=== PATIENT | male | born 1940 | race Caucasian/White ===

== ENCOUNTER 2017-02-07 02:01 | Inpatient (IN) | payer OTHER, MEDICARE ==
[~2017-02-07] VITALS: Ht 172.7 cm; Wt 106.6 kg
[~2017-02-07 02:01] MED LIST: AMLODIPINE BESYL5 M1 PO; ASPIRIN EC81 M1 PO; PREDNISONE5 M1 PO; SYNTHROID50 MCG PO
--- NOTE | 2017-02-07 07:29 | Admission Core Measures ---
Admission Meds I reviewed the following Meds: Current Medications Sig/Niraj Start time Last Medication Dose Stop Time Status Admin Acetaminophen 975 MG ONCE 02/07 0000 NR (Tylenol) 02/07 2359 Cefazolin Sodium 2,000 MG ONCE 02/07 0000 NR (Kefzol-Ancef Inj) 02/07 2359 Oxycodone HCl 10 MG ONCE 02/07 0000 NR (Roxicodone) 02/07 2359 Acute Coronary Syndrome Inclusion Criteria ACS Diagnosis No Inpatient Core Measures LDL Reminder: If No, please order W/I first 24hr of stay Congestive Heart Failure Inclusion Criteria CHF Diagnosis No Cerebrovascular accident Inclusion Criteria CVA/TIA Diagnosis No Inpatient Core Measures Bedside Swallow Eval Reminder: If BSE failed, place ST order Antithrombotic Reminder: Order Antithrombotic Medication by end of day 2 Antithrombotic Reminder: Document Reason Antithrombotic Not ordered by end of day 2 AFIB/Flutter Reminder: If Present, add to problem list AFIB/Flutter Reminder: Order Anticoag Medication for pts with AFIB/Flutter Atherosclerosis Reminder: If Present, add to problem list LDL Reminder: If No, please order W/I first 24hr of stay PT Order Reminder: If No, please order Venous thromboembolism Inpatient Core Measures VTE Risk Factors: [facility] prophylaxis d/t No contraindications No VTE Pharm Prophylaxis d/t No contraindications Inclusion Criteria - Per Current guidelines, there needs to be overlap - treatment for the first 5 days of Warfarin therapy. - Parenteral Anticoagulation (IV or SC) needs to be - given along with Warfarin therapy. VTE Diagnosis No VTE Type NONE VTE Confirmed by (Test) NONE Problem List As ranked by this Provider includes Assessment & Plan 1. Primary osteoarthritis of right knee HOME MEDS Home Med List Amlodipine Besylate 5 MG TABLET 1 TAB PO NIGHTLY HTN (Reported) Aspirin (Ecotrin*) 81 MG TABLET.DR 1 TAB PO DAILY PROPHO (Reported) Levothyroxine Sodium (Synthroid) 50 MCG TABLET 1 TAB PO NIGHTLY HYPOTHYROID ( Reported) Prednisone 5 MG TABLET 1 TAB PO DAILY ARTHRITIS (Reported)
--- NOTE | 2017-02-07 12:01 | Patient Discharge Instructions ---
Discharge Instructions General Discharge Information You were seen/treated for: right knee pain You had these procedures: Total knee replacement, RIGHT Watch for these problems: Increasing pain despite the use of pain medication Increasing redness, warmth or swelling Drainage of any type from incision Inability to bear weight on operative leg Persistent nausea and vomiting Fever greater than 101.5 degrees Other wound care: Please keep wound clean and dry. No ointments or lotions of any type on or near incision at any time. No exceptions. Your dressing will be changed by your nurse on the second day after your surgery. Daily dry dressing changes are recommended each day thereafter. Do not soak your wound in a bath at any time until otherwise indicated by Dr. Aguirre. You may shower, please dry wound immediately after shower with a clean towel. Special Instructions: Aspirin: You are taking this medication to help prevent blood clot formation. Please take with food to protect your stomach lining. Please take as directed. Protonix: Take this daily to protect your stomach lining while taking aspirin. Constipation: Pain medication can cause constipation. Dr. Aguirre has recommended that you take Colace and miralax each day. You may discontinue this medication if you develop loose stool or diarrhea. If you wish to continue this medication, it is available over the counter. If you are unable to move your bowels after several days, if you are unable to pass gas and are developing bloating, nausea, or vomiting as a result, please contact your doctor. Diet Continue normal diet: Yes Activity Activity Limited to: Weight bear as tolerated Other activity limits: use assistive devices as needed Acute Coronary Syndrome Inclusion Criteria At DC or during hospital stay patient has or had the following: ACS DIAGNOSIS No Discharge Core Measures Meds if any: Prescribed or Continued at Discharge Meds if any: NOT Prescribed or Continued at Discharge Congestive Heart Failure Inclusion Criteria At DC or during hospital stay patient has or had the following: CHF DIAGNOSIS No Discharge Core Measures Meds if any: Prescribed or Continued at Discharge Meds if any: NOT Prescribed or Continued at Discharge Cerebrovascular accident Inclusion Criteria At DC or during hospital stay patient has or had the following: CVA/TIA Diagnosis No Discharge Core Measures Meds if any: Prescribed or Continued at Discharge Meds if any: NOT Prescribed or Continued at Discharge Venous thromboembolism Inclusion Criteria VTE Diagnosis No VTE Type NONE VTE Confirmed by (Test) NONE Discharge Core Measures - Per Current guidelines, there needs to be overlap - treatment for the first 5 days of Warfarin therapy. - If discharged on Warfarin prior to 5 days of - overlap therapy, the patient will need to be - assessed for post discharge needs including - *Post discharge parental anticoagulation - *Warfarin and/or parental anticoagulation education - *Follow up date to check INR post discharge At least 5 days overlap therapy as Inpatient No Meds if any: Prescribed or Continued at Discharge Note: Overlap Therapy is Warfarin and Anticoagulant Meds if any: NOT Prescribed or Continued at Discharge
--- NOTE | 2017-02-07 12:04 | Surg Short-stay <48hrs Dis Sum ---
Visit Information Visit Dates Admission Date: 02/07/17 Discharge Date: 02/11/17 Surgical Short Stay DC Summary Admission Diagnosis: Primary unilateral osteoarthritis, RIGHT KNEE Final Diagnosis: same, s/p Total knee replacement, right Procedure(s): Total knee replacement, right Summary/Significant Findings: Patient was admitted to the hospital for an elective total joint replacement. The procedure was tolerated well and patient was transferred to a general surgical floor. Diet was advanced and tolerated, and the patient voided spontaneously. The patient was evaluated and treated by physical therapy. On POD #2, pt experienced a pre-syncopal episode with orthostatic hypotension from the 150s systolic to the 90s. A similar episode occurred on POD #3. Medical consult was requested. Cardiac and endocrine workups were negative. Narcotics were decreased and IVF were resumed briefly. On POD #4, pt was completely asymptomatic, progressed well with PT, and was subsequently cleared for discharge home with PT and nursing care. At the time of hospital discharge, vital signs were stable, neurovascular status was intact, and pain was controlled with the use of oral pain medications. Norvasc dose was changed to 2.5 mg daily. Condition at Discharge: stable Discharge Disposition: home health services Discharge instructions provided to patient/family: Yes Post discharge follow-up plan: Follow up with Dr. Aguirre in 6 weeks from date of surgery. Please call his office to arrange and/or confirm this appointment.
[2017-02-07] MEDS ORDERED: ASPIRIN EC325 M2 PO (12:33)
[2017-02-07] MEDS ORDERED: MIRALAX17 G1 PO (12:34)
[2017-02-07] MEDS ORDERED: MS CONTIN15 M2 PO (12:34)
[2017-02-07] MEDS ORDERED: DILAUDID2 M1 PO (12:34)
[2017-02-07] MEDS ORDERED: COLACE100 M1 PO (12:34)
[2017-02-07] MEDS ORDERED: PROTONIX20 M1 PO (12:34)
--- NOTE | 2017-02-07 17:44 | Operative Report ---
Operative/Inv Procedure Report Surgery Date: 02/07/17 Name of Procedure: Right total knee replacement Pre-Operative Diagnosis: Primary right knee DJD Post-Operative Diagnosis: Same Estimated Blood Loss: 50ml to 100ml Surgeon/Director Of Financial Planning: SRI JUNG,LEW Watts Anesthesia: block Operative/Procedure Note Note: Description of Procedure: The patient was taken to the operating room and positively identified. After induction of spinal anesthesia and administration of appropriate pre-operative antibiotics, the patient was positioned supine on the operating room table and all bony prominences were well padded. A well-padded pneumatic tourniquet was placed on the right upper thigh. After performing a surgical timeout, the right lower extremity was prepped and draped in the usual sterile fashion. After exsanguination with Esmarch the tourniquet was inflated to 250mm of mercury. A standard medial parapatellar approach was made to the knee. This was carried down through skin and subcutaneous tissue to the level of the fascia. Meticulous hemostasis was maintained with Bovie electrocautery. The extensor mechanism and patellar retinaculum were opened sharply and the patella was everted. The infrapatellar fat was resected in order to improve exposure. Osteophytes were trimmed from the patella and femoral condyles and the patella was re-everted and tucked laterally. A medial release was performed and the cruciate ligaments were resected. The tibia was then subluxed anteriorly. Utilizing the appropriate extra-medullary guide, the proximal tibia was trimmed perpendicular to the long axis of the tibial shaft. Attention was then turned to the femur. After opening the medullary canal, the distal femoral cut was made in 6 degrees of valgus utilizing the appropriate intra-medullary guide. The extension gap was checked and found to be appropriate. The femur was then sized and the remainder of the femoral cuts were made with a size 5 4-in-1 femoral cutting guide. The flexion gap was checked and found to be symmetric and appropriate. The knee was then trialed with a size 5 femoral component, a size 6 tibial component and a size 13 mm polyethylene insert. The patella was not resurfaced due to its excellent preoperative condition. This yielded excellent range of motion, stability and patellar tracking. All trial components were removed and the knee was copiously irrigated with sterile saline. All components were cemented into place with [place] Simplex cement. All the components were of the [place] Tri[employer]lon knee system of the above stated sizes. The knee was again irrigated after cementation. The extensor mechanism and patellar retinaculum were repaired using interrupted #1 vicryl suture. The skin was re-approximated with 2-0 vicryl and closed with darron. A sterile dressing was applied, the tourniquet was deflated, the patient was awakened and taken to the recovery room in satisfactory condition.
[2017-02-07 18:15] VITALS: BP 138/70
--- NOTE | 2017-02-07 18:15 | NUR ---
PT ARRIVED TO FLOOR FROM PACU. VSS. R KNEE DRESSING C/D/I, ICE APPLIED. PT DENIES PAIN. ON Q PUMP AT 12ML/HR. FLUIDS RUNNING. PT ON 2L NC. +PULSES. PT ORIENTED TO ROOM AND EDUCATED TECHNOLOGY ADVISOR HEWITT.
[2017-02-07 20:05] VITALS: BP 142/70
[2017-02-07 22:00] VITALS: BP 144/86
[2017-02-08] VITALS (7 sets, daily range): BP systolic 130–142; BP diastolic 60–82
--- NOTE | 2017-02-08 08:32 | PN- Orthopedic ---
Subjective Subjective: No acute events overnight. Pain well controlled. Denies nausea, vomiting. Tolerating diet, voiding spontaneously. Anticipates working with PT today, very motivated to discharge. Objective Vital Signs and I&Os Vital Signs Date Time Temp Pulse Resp B/P B/P Pulse O2 O2 Flow FiO2 Mean Ox Delivery Rate 02/08 0741 98.5 77 20 142/70 94 02/08 0415 98.5 77 20 142/80 94 Room Air 02/08 0008 98.5 73 18 138/82 93 Room Air 02/07 2200 97.4 80 20 144/86 95 Nasal Cannula 02/07 2109 73 142/70 02/07 2005 97.6 73 20 142/70 95 Nasal Cannula 02/07 183 Nasal 2.0L Cannula 02/07 1815 97.4 83 16 138/70 93 Nasal 2.0L Cannula Intake & Output 02/08 1600 02/08 0800 02/08 0000 02/07 1600 02/07 0800 02/07 0000 Intake Total 655 Output Total 300 520 Balance -300 135 Intake, IV 375 Intake, Oral 280 Output, Urine 300 520 Patient 235 lb Weight Physical Exam: General: CAOx3, NAD. Lungs: Normal work of breathing Extremities: Postoperative dressing to RLE clean, dry, intact, DENYS bandage in place. 5/5 plantar/dorsiflexion bilaterally. 2+ DP R pulse. No edema, or calf tenderness. Current Medications: Current Medications Sig/Niraj Start time Last Medication Dose Route Stop Time Status Admin Acetaminophen 650 MG Q4P PRN 02/07 1830 AC 02/08 PO 0415 Acetaminophen 0 .STK-MED ONE 02/07 1123 DC PO Acetaminophen 975 MG ONCE 02/07 0000 DC PO 02/07 235 Amlodipine Besylate 5 MG AT BEDTIME 02/07 2200 DC PO Amlodipine Besylate 5 MG AT BEDTIME 02/07 2200 AC 02/07 PO 210 Aspirin 325 MG BID 02/07 2200 AC 02/07 PO 210 Cefazolin Sodium 2 GM Q8H 02/08 2000 DC 02/08 N/A 1 UNIT IV 02/08 0429 0401 Cefazolin Sodium 2,000 MG ONCE 02/07 0000 DC IV 02/07 235 Dextrose/Sodium 1,000 ML .[id number] 02/07 183 DC 02/08 Chloride IV 0415 Docusate Sodium 100 MG BID 02/07 2200 AC 02/07 PO 2108 Fentanyl Citrate 100 MCG .STK-MED ONE 02/07 1116 DC IM 02/07 1117 Hydrocortisone 100 MG .STK-MED ONE 02/07 1136 DC Sodium Succinate IM 02/07 1137 Hydromorphone HCl 2 MG Q4P PRN 02/07 1830 AC PO Hydromorphone HCl 4 MG Q4P PRN 02/07 1830 AC PO Hydromorphone HCl 2 MG .STK-MED ONE 02/07 1749 DC IM 02/07 1750 Hydromorphone HCl 2 MG .STK-MED ONE 02/07 1530 DC IM 02/07 1531 Ketorolac 15 MG Q8P PRN 02/07 1830 AC Tromethamine IV 02/10 1819 Levothyroxine Sodium 0.05 MG AT BEDTIME 02/07 2200 DC PO Levothyroxine Sodium 0.05 MG AT BEDTIME 02/07 2200 AC 02/07 PO 2107 Meperidine HCl 50 MG .STK-MED ONE 02/07 1529 DC IM 02/07 1530 Midazolam HCl 2 MG .STK-MED ONE 02/07 1116 DC IM 02/07 1117 Morphine Sulfate 2 MG Q2P PRN 02/07 1830 AC IV Omeprazole 20 MG DAILY AC 02/08 0700 AC 02/08 PO 0649 Ondansetron HCl 4 MG Q6P PRN 02/07 1830 AC IV Oxycodone HCl 0 .STK-MED ONE 02/07 1123 DC PO Oxycodone HCl 10 MG ONCE 02/07 0000 DC PO 02/07 2359 Polyethylene Glycol 17 GM DAILY 02/08 1000 AC PO Prednisone 5 MG DAILY 02/08 1000 AC 02/08 PO 0738 Promethazine HCl 12.5 MG Q6P PRN 02/07 1830 AC IV 02/14 1329 Ropivacaine 500 ML ONCE ONE 02/07 1530 AC ON-Q Ball 1 BAG INJ 02/09 0909 Tranexamic Acid 1,000 MG .STK-MED ONE 02/07 1116 DC IV 02/07 1117 Results Last 48 Hours of Labs: Laboratory Tests 02/08 0625 Chemistry Sodium Pending Potassium Pending Chloride Pending Carbon Dioxide Pending Anion Gap Pending BUN Pending Creatinine Pending BUN/Creatinine Ratio Pending Hematology CBC w Diff Pending WBC Pending RBC Pending Hgb Pending Hct Pending MCV Pending MCH Pending RDW Pending Plt Count Pending MPV Pending PUBS MCHC Pending Assessment/Plan Assessment/Plan This is a 76 year old male s/p right total knee arthroplasty on 02/07/2017, postoperative day 1. - pain control: dilaudid po PRN, toradol PRN, morphine PRN. OnQ in place. - bowel regimen: Miralax daily, Colace BID - regular diet, discontinue IVF - Antiemetic: zofran and phenergan PRN - DVT prophylaxis: Aspirin 325 mg BID - follow up am labs: CBC, BMP - Continue home medications: prednisone 5mg daily, Synthroid, Amlodipine - PT evaluation pending, WBAT - Dispo: home after PT clearance Core Measures/Miscellaneous Venous Thromboembolism VTE Risk Factors: Age > 40 VTE Contraindications: No Contraindications VTE Diagnosis: No VTE Type: NONE VTE Confirmed by (Test): NONE Beta Ruy Is Beta Ruy a Home Med? No Antibiotics Is Patient on Antibiotics? No
[2017-02-08 09:08] LABS: ABSOLUTE BASOPHIL COUNT 0 /CUMM (0.0-0.2); ABSOLUTE EOSINOPHIL COUNT 0 /CUMM (0.0-0.7); ABSOLUTE GRANULOCYTE CT 9.4 /CUMM (1.4-6.5); ABSOLUTE LYMPH COUNT 0.3 /CUMM (1.2-3.4); ABSOLUTE MONOCYTE COUNT 0.7 /CUMM (0.10-0.60); BASOPHIL % 0 % (0.0-2.0); EOSINOPHIL % 0 % (0-5); HEMATOCRIT 35.5 % (42-52); MEAN CORPUSCULAR HGB 31.1 PG (27.0-31.0); MEAN CORPUSCULAR HGB CONC 34.3 G/DL (33.0-37.0); MEAN CORPUSCULAR VOLUME 90.6 FL (80.0-94.0); MEAN PLATELET VOLUME 7.4 FL (7.4-10.4); PLATELET COUNT 230 /CUMM (130-400); RBC DISTRIBUTION WIDTH 13.4 % (11.5-14.5); RED BLOOD CELL CT 3.91 /CUMM (4.70-6.10); WHITE BLOOD CELL COUNT 10.4 /CUMM (4.8-10.8)
[2017-02-08 10:18] LABS: GRANULOCYTE % 90.8 % (42.2-75.2)
[2017-02-09 06:33] VITALS: BP 148/80
--- NOTE | 2017-02-09 08:20 | PN- Orthopedic ---
See Addendum Subjective Subjective: No complaints overnight. Pain is controlled. Performed well with therapy. Is hoping to be discharged home later today Objective Vital Signs and I&Os Vital Signs Date Time Temp Pulse Resp B/P B/P Pulse O2 O2 Flow FiO2 Mean Ox Delivery Rate 02/09 0633 98.0 78 16 148/80 98 Room Air 02/09 0000 95 Room Air 02/08 2148 98.0 83 20 138/60 95 Room Air 02/08 2138 98.0 83 20 138/60 02/08 1811 98.8 84 20 138/64 93 Room Air 02/08 1423 Room Air Room Air 02/08 1413 97.9 70 20 130/70 97 02/08 1121 98.2 80 20 140/70 95 Intake & Output 02/09 1600 02/09 0800 02/09 0000 02/08 1600 02/08 0800 02/08 0000 Intake Total 0 693 420 4502 655 Output Total 575 301 341 0729 520 Balance -575 -370 -80 -550 135 Intake, IV 0 600 375 Intake, Oral 0 480 720 400 280 Number 0 0 0 Bowel Movements Output, Urine 575 133 125 6575 520 Patient 235 lb Weight Physical Exam: Well-developed well-nourished no apparent distress. HEENT: Atraumatic, extraocular motion intact Neck: Supple, no lymphadenopathy Respiratory: No respiratory distress Extremities: No edema RIGHT lower extremity dressing in place, Incision line is clean dry and intact with minimal bloody drainage. No signs of infection. Moderate joint effusion Range of motion is 0-75. Compression wrap in place. Dressing changed, dry sterile dressing applied ALPS in place Neurovascularly intact distally Bilateral calves are supple, nontender. Neuro: Alert and oriented x3 Psych: Mood affect normal, normal memory normal judgment. Skin: Warm and dry, no rash on exposed skin Results Last 48 Hours of Labs: Laboratory Tests 02/08 0625 Chemistry Sodium (137 - 145 mmol/L) 139 Potassium (3.5 - 5.1 mmol/L) 3.6 Chloride (98 - 107 mmol/L) 105 Carbon Dioxide (22 - 30 mmol/L) 22 Anion Gap (5 - 16) 12 BUN (9 - 20 mg/dL) 12 Creatinine (0.7 - 1.2 mg/dL) 0.6 L Estimated GFR (>60 ml/min) > 60 BUN/Creatinine Ratio (7 - 25 %) 20.0 Hematology CBC w Diff NO MAN DIFF REQ WBC (4.8 - 10.8 /CUMM) 10.4 RBC (4.70 - 6.10 /CUMM) 3.91 L Hgb (14.0 - 18.0 G/DL) 12.2 L Hct (42 - 52 %) 35.5 L MCV (80.0 - 94.0 FL) 90.6 MCH (27.0 - 31.0 PG) 31.1 H RDW (11.5 - 14.5 %) 13.4 Plt Count (130 - 400 /CUMM) 230 MPV (7.4 - 10.4 FL) 7.4 Gran % (42.2 - 75.2 %) 90.8 H Lymphocytes % (20.5 - 51.1 %) 2.6 L Monocytes % (1.7 - 9.3 %) 6.6 Eosinophils % (0 - 5 %) 0 Basophils % (0.0 - 2.0 %) 0 L Absolute Granulocytes (1.4 - 6.5 /CUMM) 9.4 H Absolute Lymphocytes (1.2 - 3.4 /CUMM) 0.3 L Absolute Monocytes (0.10 - 0.60 /CUMM) 0.7 H Absolute Eosinophils (0.0 - 0.7 /CUMM) 0 Absolute Basophils (0.0 - 0.2 /CUMM) 0 PUBS MCHC (33.0 - 37.0 G/DL) 34.3 Assessment/Plan Assessment/Plan Possibly #2 status post right total knee arthroplasty Progressing well, possible discharge home later today if clears physical therapy Pain is controlled, continue Dilaudid by mouth Aspirin for DVT prophylaxis ALPS OnQ dc'd Regular diet dressing changed, dsd qd VNA services upon dc. Core Measures/Miscellaneous Venous Thromboembolism VTE Risk Factors: Age > 40 VTE Contraindications: No Contraindications VTE Diagnosis: No VTE Type: NONE VTE Confirmed by (Test): NONE Beta Ruy Is Beta Ruy a Home Med? No Antibiotics Is Patient on Antibiotics? No
--- NOTE | 2017-02-09 10:03 | NUR ---
0950- PT AMBULATING WITH PHYSICAL THERAPY. BEGAN TO FEEL LIGHTHEADED AND SAT IN A CHAIR. B/P 70/40. PATIENT PUT BACK IN BED IN TRANDELENBURG POSITION, B/P 122/70. 1000- PT STATES HE IS FEELING BETTER, BUT FEELS TIRED TODAY. B/P 142/72, HR 70, RR 18, O2 SAT 96% ON RA. SURG SHELBY QUICK NOTIFIED OF ABOVE. NO NEW ORDERS AT THIS TIME. PT TO REST IN BED FOR AWHILE. WILL CONTINUE TO MONITOR.
--- NOTE | 2017-02-09 10:11 | Event Note ---
Event Note Event Note: Walking with physical therapy patient became lightheaded and dizzy and had a near syncopal event, was able to be guided into a chair, I witnessed this accident was in the hallway, I assisted in getting the patient back to bed which went smoothly. Patient did not have any pain or complaints afterwards, he was pale diaphoretic and lightheaded but did not have any complete loss of consciousness. Denies any chest pain. His systolic blood pressure initially was 70 over once we got him back into the bed in Trendelenburg position and aimee to 140 systolic. He states that this happens to him on occasion. We will delay his discharge today and have him work with physical therapy again after lunch.
[2017-02-09 11:00] VITALS: BP 138/72
--- NOTE | 2017-02-09 11:14 | NUR ---
11:00- PT A/V/OX3. SITTING UP IN BED. B/P 138/72, HR 74, O2 SAT 96 RA, RR 18. PT STATES HE IS FEELING FINE.
--- NOTE | 2017-02-09 13:49 | NUR ---
13:45- VSS. PT NOTED TO BE SLEEPING OFTEN THIS SHIFT. WHEN AWOKEN, PT STATES, "I AM JUST SO TIRED". PT STATES PAIN TO R KNEE MINIMAL 1/10 AT THIS TIME. PT HAD EPISODE OF LIGHT HEADEDNESS THIS MORNING WHEN AMBULATING WITH P/T. SURG SHELBY QUICK NOTIFIED OF PT FEELING VERY TIRED TODAY AND SLEEPING OFTEN. VERBALIZED CONCERN THIS IS DIFFERENT THAN PT'S BASELINE. SURG SHELBY QUICK TO ASSESS AT BEDSIDE.
[2017-02-09 14:21] VITALS: BP 120/70
--- NOTE | 2017-02-09 15:06 | NUR ---
Physical Therapy: attempted to see pt this afternoon for treatment. Pt sleeping soundly in room. Per nursing notes, pt has been very sleepy today. Surgical PA aware and will be up to evaluate patient. Will cancel treatment this afternoon. Will follow up with patient tomorrow AM as appropriate to trial stairs.
[2017-02-09 15:49] LABS: ABSOLUTE BASOPHIL COUNT 0 /CUMM (0.0-0.2); ABSOLUTE EOSINOPHIL COUNT 0 /CUMM (0.0-0.7); ABSOLUTE GRANULOCYTE CT 7.7 /CUMM (1.4-6.5); ABSOLUTE LYMPH COUNT 0.8 /CUMM (1.2-3.4); ABSOLUTE MONOCYTE COUNT 1.9 /CUMM (0.10-0.60); BASOPHIL % 0.1 % (0.0-2.0); EOSINOPHIL % 0.2 % (0-5); GRANULOCYTE % 73.6 % (42.2-75.2); HEMATOCRIT 34.9 % (42-52); MEAN CORPUSCULAR HGB CONC 33.7 G/DL (33.0-37.0); MEAN CORPUSCULAR VOLUME 91.9 FL (80.0-94.0); MEAN PLATELET VOLUME 7.5 FL (7.4-10.4); PLATELET COUNT 249 /CUMM (130-400); RBC DISTRIBUTION WIDTH 13.7 % (11.5-14.5); WHITE BLOOD CELL COUNT 10.4 /CUMM (4.8-10.8)
[2017-02-09 22:52] VITALS: BP 128/78
[2017-02-10 06:47] VITALS: BP 140/82
--- NOTE | 2017-02-10 08:22 | PN- Orthopedic ---
Subjective Subjective: POD #3 s/p R total knee replacement Patient has no major complaints this morning. He states that he feels much better than yesterday. He denies dizziness, lightheadedness, and fatigue. He admits that he has not been out of bed as of yet as morning. He is awaiting physical therapy. He did spike a temp to 102 last night, but is 99 this morning. He has not been using a spirometer. He is voiding and tolerating a diet. No bowel movement as of yet. Otherwise denies headache, chest pain, shortness of breath. Objective Vital Signs and I&Os Vital Signs Date Time Temp Pulse Resp B/P B/P Pulse O2 O2 Flow FiO2 Mean Ox Delivery Rate 02/10 0647 99.4 80 18 140/82 94 Room Air 02/09 2300 99.5 02/09 2252 102.3 100 20 128/78 91 Room Air 02/09 2208 100.0 02/09 2208 93 Nasal 1.0L Cannula 02/09 2109 102.3 02/09 2109 120/74 02/09 1421 99.1 93 20 120/70 93 02/09 1100 18 138/72 96 Room Air Intake & Output 02/10 1600 02/10 0800 /15 0000 14 1600 02/09 0800 02/09 0000 Intake Total 260 490 630 200 480 Output Total 675 162 015 8557 850 Balance -415 65 230 -1025 -370 Intake, IV 20 10 30 0 Intake, Oral 240 480 600 200 480 Number 0 0 Bowel Movements Output, Urine 675 671 946 1311 850 Physical Exam: Gen.: Patient is awake and alert. No acute distress. Cardiac: Regular Pulmonary: Lungs are clear to auscultation bilaterally, however breath sounds are distant and decreased at the bases bilaterally. No crackles or wheezes are appreciated. Extremities: The right knee incision is clean, dry, and intact. There is moderate knee swelling, within expected limits. No calf tenderness is appreciated. Strength of dorsiflexion and plantar flexion are 4-5 on the operative side. Dry dressing was replaced. Results Last 48 Hours of Labs: Laboratory Tests 02/09 02/09 1502 1500 Chemistry Sodium (137 - 145 mmol/L) 139 Potassium (3.5 - 5.1 mmol/L) 3.5 Chloride (98 - 107 mmol/L) 101 Carbon Dioxide (22 - 30 mmol/L) 28 Anion Gap (5 - 16) 10 BUN (9 - 20 mg/dL) 12 Creatinine (0.7 - 1.2 mg/dL) 0.7 Estimated GFR (>60 ml/min) > 60 BUN/Creatinine Ratio (7 - 25 %) 17.1 Hematology CBC w Diff NO MAN DIFF REQ WBC (4.8 - 10.8 /CUMM) 10.4 RBC (4.70 - 6.10 /CUMM) 3.80 L Hgb (14.0 - 18.0 G/DL) 11.8 L Hct (42 - 52 %) 34.9 L MCV (80.0 - 94.0 FL) 91.9 MCH (27.0 - 31.0 PG) 31.0 RDW (11.5 - 14.5 %) 13.7 Plt Count (130 - 400 /CUMM) 249 MPV (7.4 - 10.4 FL) 7.5 Gran % (42.2 - 75.2 %) 73.6 Lymphocytes % (20.5 - 51.1 %) 7.6 L Monocytes % (1.7 - 9.3 %) 18.5 H Eosinophils % (0 - 5 %) 0.2 Basophils % (0.0 - 2.0 %) 0.1 Absolute Granulocytes (1.4 - 6.5 /CUMM) 7.7 H Absolute Lymphocytes (1.2 - 3.4 /CUMM) 0.8 L Absolute Monocytes (0.10 - 0.60 /CUMM) 1.9 H Absolute Eosinophils (0.0 - 0.7 /CUMM) 0 Absolute Basophils (0.0 - 0.2 /CUMM) 0 PUBS MCHC (33.0 - 37.0 G/DL) 33.7 Urines Urine Color (YEL,AMB,STR) YEL Urine Clarity (CLEAR) CLEAR Urine pH (5.0 - 8.0) 7.0 Ur Specific [place] (1.001 - 1.035) 1.010 Urine Protein (NEG,<30 MG/DL) NEG Urine Ketones (NEG) NEG Urine Nitrite (NEG) NEG Urine Bilirubin (NEG) NEG Urine Urobilinogen (0.1 - 1.0 EU/dl) 1.0 Ur Leukocyte Esterase (NEG) NEG Ur Microscopic EXAM NOT REQUIRED Urine Hemoglobin (NEG) NEG Urine Glucose (N MG/DL) NEG Assessment/Plan Assessment/Plan Patient is a 76-year-old male with a history of hypertension, hypothyroidism, who is now postoperative day #3 status post right total knee replacement. Patient's postoperative course was complicated by lethargy and a presyncopal episode during ambulation with physical therapy. He feels much better today and is looking forward to possible discharge. Plan: -Will await PT evaluation this morning. If patient tolerates, we will plan for discharge to home with physical therapy and nursing services. WBAT with rolling walker. -Continue pain control with oral Dilaudid as needed. -Colace and miralax for bowel regimen. Consider Dulcolax suppository today patient is agreeable. -ASA 325 bid for DVT ppx. Alps and Timi's as well. -Continue dry dressing change daily. -Staple removal at 2 weeks postop. Follow-up with Dr. Aguirre in 6 weeks. Core Measures/Miscellaneous Venous Thromboembolism VTE Risk Factors: Age > 40 VTE Contraindications: No Contraindications VTE Diagnosis: No VTE Type: NONE VTE Confirmed by (Test): NONE Beta Ruy Is Beta Ruy a Home Med? No Antibiotics Is Patient on Antibiotics? No
--- NOTE | 2017-02-10 09:59 | Cons- Medical ---
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 with benign findings, rheumatoid arthritis on prednisone 5 mg daily, osteoarthritis who underwent a right total knee replacement on 02/07/2017 and whom we have been asked to consult on for hypotension, dizziness. The patient underwent a right total knee replacement on 02/07/[address] Fierro, weightbearing as tolerated, rolling walker. He did have an episode of dizziness on 02/09/2017 while ambulating with the aide of PT, assisted into a chair, became diaphoretic but no LOC. Noticeable drop in SBP from 150s to 90s with change in position (orthostatic positive). Patient has received his regular dose of amlodipine 5 mg daily. He is on prednisone 5 mg daily for rheumatoid arthritis. Patient did spike a fever MAXIMUM TEMPERATURE 102 yesterday, had received 2 doses of cefazolin post operatively. ROS at this time: He denies any dizziness, headache, blurry vision, difficulty speaking/swallowing, chest pain, palpitations, nausea, abdominal pain, diarrhea, weakness/numbness in any of his extremities at this time. Allergies/Medications Allergies: Coded Allergies: valsartan (Severe, TONGUE SWELLING 02/05/17) Home Med List: Amlodipine Besylate 5 MG TABLET 1 TAB PO NIGHTLY HTN (Reported) Aspirin (Ecotrin*) 81 MG TABLET.DR 1 TAB PO DAILY PROPHO (Reported) Aspirin (Ecotrin*) 325 MG TABLET.DR 1 TAB PO BID ANTICOAGULATION Docusate Sodium (Colace) 100 MG CAPSULE 1 CAP PO BID STOOL SOFTENER STOP TAKING IF YOU DEVELOP LOOSE STOOL/DIARRHEA Hydromorphone HCl (Dilaudid) 2 MG TABLET 1-2 TAB PO Q4-6 PRN PRN PAIN Levothyroxine Sodium (Synthroid) 50 MCG TABLET 1 TAB PO NIGHTLY HYPOTHYROID ( Reported) Morphine Sulfate (Ms Contin) 15 MG TABLET.ER 15 MG PO BID PAIN Pantoprazole Sodium (Protonix) 20 MG TABLET.DR 1 TAB PO DAILY GI PROTECTION Polyethylene Glycol 3350 (Miralax) 17 GRAM POWD.PACK 1 PAC PO DAILY CONSTIPATION dissolve in water. STOP TAKING IF YOU DEVELOP LOOSE STOOL/DIARRHEA Prednisone 5 MG TABLET 1 TAB PO DAILY ARTHRITIS (Reported) Review of Systems Review of Systems Constitutional: Reports: see HPI. EENTM: Reports: no symptoms. Cardiovascular: Reports: no symptoms. Respiratory: Reports: no symptoms. GI: Reports: see HPI. Musculoskeletal: Reports: see HPI. Skin: Reports: no symptoms. Neurological/Psychological: Reports: no symptoms. 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 Home Smoking Status: Former Smoker ETOH Use: occasional use Functional Ability ADLs Independent: dressing, eating, toileting, bathing. Exam & Diagnostic Data Last 24 Hrs of Vital Signs/I&O Vital Signs Date Time Temp Pulse Resp B/P B/P Pulse O2 O2 Flow FiO2 Mean Ox Delivery Rate 02/10 0647 99.4 80 18 140/82 94 Room Air 02/09 2300 99.5 02/09 2252 102.3 100 20 128/78 91 Room Air 02/09 2208 100.0 02/09 2208 93 Nasal 1.0L Cannula 02/09 2109 102.3 02/09 210 120/74 02/09 1421 99.1 93 20 120/70 93 Intake & Output 02/10 1600 02/10 0800 02/10 0000 Intake Total 260 490 Output Total 675 425 Balance -415 65 Intake, IV 20 10 Intake, Oral 240 480 Output, Urine 675 425 Physical Exam General Appearance: no apparent distress, alert, comfortable, likely drowsy Head: atraumatic, normal appearance Eyes: Bilateral: EOMI. Ears, Nose, Throat: normal ENT inspection, hearing grossly normal Respiratory: normal breath sounds, chest non-tender, no respiratory distress, diminished breath sounds bilaterally. No evidence of wheezing or crackles at this time Cardiovascular: regular rate/rhythm, normal peripheral pulses Gastrointestinal: normal bowel sounds, soft, non-tender Extremities: no edema Last 24 Hrs of Labs/Luigi: Laboratory Tests 02/10/17 1015: Troponin I Pending 02/10/17 1015: Sodium Pending, Potassium Pending, Chloride Pending, Carbon Dioxide Pending, Anion Gap Pending, BUN Pending, Creatinine Pending, BUN/Creatinine Ratio Pending , Phosphorus Pending, Magnesium Pending, TSH Pending, Free T4 Pending, Total T3 Pending, Cortisol AM Sample Pending, CBC w Diff Pending, WBC Pending, RBC Pending, Hgb Pending, Hct Pending, MCV Pending, MCH Pending, RDW Pending, Plt Count Pending, MPV Pending, PUBS MCHC Pending 02/09/17 1502: Anion Gap 10, Estimated GFR > 60, BUN/Creatinine Ratio 17.1, CBC w Diff NO MAN DIFF REQ, RBC 3.80 L, MCV 91.9, MCH 31.0, RDW 13.7, MPV 7.5, Gran % 73.6, Lymphocytes % 7.6 L, Monocytes % 18.5 H, Eosinophils % 0.2, Basophils % 0.1, Absolute Granulocytes 7.7 H, Absolute Lymphocytes 0.8 L, Absolute Monocytes 1.9 H, Absolute Eosinophils 0, Absolute Basophils 0, PUBS MCHC 33.7 02/09/17 1500: Urine Color YEL, Urine Clarity CLEAR, Urine pH 7.0, Ur Specific [place] 1.010, Urine Protein NEG, Urine Ketones NEG, Urine Nitrite NEG, Urine Bilirubin NEG, Urine Urobilinogen 1.0, Ur Leukocyte Esterase NEG, Ur Microscopic EXAM NOT REQUIRED, Urine Hemoglobin NEG, Urine Glucose NEG Diagnostic Data CXR Results No convincing radiographic evidence of an acute cardiopulmonary process. Assessment/Plan Assessment/Plan 76-year-old gentleman with a PMH of hypertension, hypothyroidism, pituitary growth status post transsphenoidal surgery in [address] [facility] with benign findings, rheumatoid arthritis on prednisone 5 mg daily, osteoarthritis who underwent a right total knee replacement on 02/07/2017 and whom we have been asked to consult on for hypotension, dizziness. Problem list: 1. Hypotension, dizziness 2. History of transsphenoidal pituitary surgery 3. Rheumatoid arthritis on prednisone 4. Hypothyroidism Recommendations: * Differential diagnosis include adrenal insufficiency versus medication induced (amlodipine, narcotic) hypotension * Follow-up a.m. cortisol and if suppressed will consult with endocrinology * Blood pressure appears to be appropriate at this time. Consider holding off initiating fluid resuscitation at this time * Check orthostatics and if positive consider half dose of Norvasc, caution with position changes * Consider discontinuing Dilaudid and instead pain management with Percocets * Bowel regimen Consult Acknowledgment - Thank you for your consult request. LUCERO JUNG,TRINITY 02/10/17 192: Assessment/Plan Consult Acknowledgment - Thank you for your consult request. Attending MD Review Statement Attending Statement Attending MD Statement: examined this patient, discuss w/resident/PA/PHOTOENGRAVING PHOTOGRAPHER, agreed w/resident/PA/PHOTOENGRAVING PHOTOGRAPHER, discussed with family, reviewed EMR data (avail) Attending Assessment/Plan: Agree with the resident note above. Patient seen and examined. In summary 76- year-old the male with past history as described above who underwent the right knee replacement on February 07 who currently has orthostatic lightheadedness with a drop in blood pressure to 90 systolic. Patient noted to be currently on Norvasc and Dilaudid by oral route. I suspect the most likely reason for his Ultracet drop is antihypertensive medication narcotics and possible underlying dehydration. Patient also could have deconditioning from being in bed for last 3-4 days. Patient also noted to have fever. He UA seemed unremarkable and cultures negative. Chest x-ray is clear. Patient is noted to have slightly elevated white cell count. Suggestions * Hydrate with a bolus of 500 mL to -1 L of normal saline * Hold Norvasc * Decreased Dilaudid dose if possible; consider alternative medication such as Tylenol or Ultram for pain * Recheck orthostatics again * Continue to monitor for fever ; surgery to assess for wound infection. * Replace potassium by mouth
--- NOTE | 2017-02-10 10:03 | Event Note ---
Event Note Event Note: Patient attempted ambulation with physical therapy and reported dizziness and lightheadedness upon standing. His blood pressure dropped from the 150s to the 90s abruptly upon standing as well. Patient was returned to the bed and his symptoms completely resolved. His systolic blood pressure is now 130s. He denies chest pain, shortness of breath, dizziness while supine. Saturations are stable. I placed a medical consult with Dr. Motley. 500 mL bolus of normal saline is being requested, IN addition to a maintenance rate of IV fluids. CBC, lytes, EKG , and troponin were also requested. We will discontinue the larger dose of po dilaudid. Will f/u further medicine recommendations.
--- NOTE | 2017-02-10 11:15 | RADIOLOGY REPORT ---
EXAMINATION: XR PORTABLE CHEST CLINICAL INFORMATION: 76-year-old man with hypotension and decreased breath sounds. COMPARISON: None TECHNIQUE: Portable frontal view of the chest was obtained. FINDINGS: Lung volumes are somewhat low. No focal airspace consolidation or overt pulmonary edema is appreciated. There is mild to moderate cardiomegaly with left atrial enlargement. There are no large pleural effusions. IMPRESSION: No convincing radiographic evidence of an acute cardiopulmonary process.
--- NOTE | 2017-02-10 12:04 | NUR ---
PHYSICAL THERAPY: CXL PT TX FOR AFTERNOON 2/2 pt's SIGNIFICANT ORTHOSTATIC HYPOTENSION, AND PENDING LAB AND EKG RESULTS. WILL SEE pt TOMORROW AND ATTEMPT PT TX IF APPROPRIATE.
[2017-02-10 12:09] LABS: ABSOLUTE BASOPHIL COUNT 0 /CUMM (0.0-0.2); ABSOLUTE EOSINOPHIL COUNT 0.2 /CUMM (0.0-0.7); ABSOLUTE GRANULOCYTE CT 7.7 /CUMM (1.4-6.5); ABSOLUTE MONOCYTE COUNT 2.2 /CUMM (0.10-0.60); BASOPHIL % 0.3 % (0.0-2.0); EOSINOPHIL % 1.4 % (0-5); GRANULOCYTE % 69.7 % (42.2-75.2); HEMATOCRIT 33.8 % (42-52); MEAN CORPUSCULAR HGB 31.1 PG (27.0-31.0); MEAN CORPUSCULAR HGB CONC 34.1 G/DL (33.0-37.0); MEAN CORPUSCULAR VOLUME 91.3 FL (80.0-94.0); MEAN PLATELET VOLUME 7.6 FL (7.4-10.4); PLATELET COUNT 286 /CUMM (130-400); RBC DISTRIBUTION WIDTH 13.2 % (11.5-14.5); WHITE BLOOD CELL COUNT 11.1 /CUMM (4.8-10.8)
[2017-02-10 14:00] VITALS: BP 148/68
--- NOTE | 2017-02-10 14:53 | NUR ---
PT ATTEMPTED TO WORK WITH PATIENT THIS AM BUT PT HAS POSTIVE ORTHOSTATIC VITAL SIGNS 154/76 SITTING THEN DROPPED TO 90'S SYSTOLIC WHEN STANDING, AND BECAME DIAPHORETIC AND DIZZY, 1 EPISODE OF DRY HEAVE. ASSISTED BACK TO BED BY PHYSICAL THERAPY, SEE SURGICAL PA EVENT NOTE. ONCE BACK IN BED, BP STABLE AT 138/60, PT DENIED DIZZINESS OR PAIN. FLUIDS ORDERED, BP CHECK AGAIN REVEALED BP OF 160/70, NOTIFIED MD MCPHERSON OF THIS LEVEL AND WAS INSTRUCTED TO HOLD FLUIDS AT THIS TIME. PT REMAINED STABLE FOR REMAINDER OF SHIFT, ORTHOSTATICS CHECKED AGAIN AT 1400, LYING 148/68 PULSE 94. SITTING 172/72 PULSE 99, STANDING 130/70 PULSE 104. PT AMBULATED TO RESTROOM ACCOMPAINED BY RN, DENIED DIZZINESS. NEEDS IN REACH, SAFETY MAINTAINED.
[2017-02-10 22:19] VITALS: BP 142/70
[2017-02-11 06:35] VITALS: BP 152/80
[2017-02-11 08:20] LABS: ABSOLUTE BASOPHIL COUNT 0 /CUMM (0.0-0.2); ABSOLUTE EOSINOPHIL COUNT 0.2 /CUMM (0.0-0.7); ABSOLUTE GRANULOCYTE CT 6.1 /CUMM (1.4-6.5); ABSOLUTE LYMPH COUNT 1.1 /CUMM (1.2-3.4); ABSOLUTE MONOCYTE COUNT 1.4 /CUMM (0.10-0.60); BASOPHIL % 0.4 % (0.0-2.0); EOSINOPHIL % 2.1 % (0-5); GRANULOCYTE % 69.1 % (42.2-75.2); HEMATOCRIT 31.9 % (42-52); MEAN CORPUSCULAR HGB 31.5 PG (27.0-31.0); MEAN CORPUSCULAR HGB CONC 34.8 G/DL (33.0-37.0); MEAN CORPUSCULAR VOLUME 90.7 FL (80.0-94.0); MEAN PLATELET VOLUME 7.5 FL (7.4-10.4); PLATELET COUNT 235 /CUMM (130-400); RBC DISTRIBUTION WIDTH 13.3 % (11.5-14.5); RED BLOOD CELL CT 3.52 /CUMM (4.70-6.10); WHITE BLOOD CELL COUNT 8.8 /CUMM (4.8-10.8)
--- NOTE | 2017-02-11 09:09 | PN- Orthopedic ---
See Addendum Subjective Subjective: Patient was feeling well yesterday morning, but ended up having another episode of orthostatic hypotension and dizziness upon standing with PT. He was unable to start or complete his session. Medical consult was obtained and both cardiac and endocrine workup's have been negative.this morning patient reports feeling much better again. He is actually out of bed to the chair and not really using any pain medication other than Tylenol occasionally. He is awaiting another attempt at PT this morning. Also denies headache, chest pain, shortness of breath. Positive BM yesterday. Afebrile 1.5 days. Objective Vital Signs and I&Os Vital Signs Date Time Temp Pulse Resp B/P B/P Pulse O2 O2 Flow FiO2 Mean Ox Delivery Rate 02/11 0635 98.8 88 16 152/80 95 Room Air 02/10 2219 99.1 83 19 142/70 93 Room Air 02/10 1400 98.5 94 18 148/68 95 Room Air Intake & Output 02/11 1600 02/11 0800 02/11 0000 02/10 1600 02/10 0800 02/10 0000 Intake Total 250 490 650 260 490 Output Total 500 140 250 675 425 Balance -250 350 400 -415 65 Intake, IV 10 10 20 10 Intake, Oral 240 480 650 240 480 Number 1 Bowel Movements Output, Urine 500 140 250 675 425 Physical Exam: Exam was performed with patient sitting in the chair. Gen.: Patient is awake and alert. No acute distress. Cardiac: Regular Pulmonary: Lungs are clear to auscultation bilaterally. No crackles or wheezes are appreciated. Extremities: The right knee incision is clean, dry, and intact. There is moderate knee swelling, within expected limits. No calf tenderness is appreciated. Strength of dorsiflexion and plantar flexion are 4-5 on the operative side. Assessment/Plan Assessment/Plan Patient is a 76-year-old male with a history of hypertension, hypothyroidism, who is now postoperative day #4 status post right total knee replacement. Patient's postoperative course was complicated by lethargy and a presyncopal episode during ambulation with physical therapy on both POD #2 and #3. Cardiac and endocrine workups have been negative. Plan: -Will await PT evaluation this morning. If patient tolerates, we will plan for discharge to home with physical therapy and nursing services. WBAT with rolling walker. Pt understands there may be a need for STR if he is not able to progress well today. -Continue pain control with oral tylenol as needed. -Colace and miralax for bowel regimen. -ASA 325 bid for DVT ppx. Alps and Timi's as well. -Continue dry dressing change daily. -Staple removal at 2 weeks postop. Follow-up with Dr. Aguirre in 6 weeks. Core Measures/Miscellaneous Venous Thromboembolism VTE Risk Factors: Age > 40 VTE Contraindications: No Contraindications VTE Diagnosis: No VTE Type: NONE VTE Confirmed by (Test): NONE Beta Ruy Is Beta Ruy a Home Med? No Antibiotics Is Patient on Antibiotics? No
[2017-02-11] MEDS ORDERED: NORVASC2.5 M1 PO (10:45)
[2017-02-11] MEDS ORDERED: DILAUDID2 M1 PO (10:56)
--- NOTE | 2017-02-11 12:59 | PN- Att Addend ---
Attending Addendum Attending Brief Note Attending MD Statement: examined this patient, discuss w/resident/PA/INVENTORY CONTROL CLERK, agreed w/resident/PA/INVENTORY CONTROL CLERK, discussed with family, reviewed EMR data (avail) Attending Assessment/Plan: Agree with the resident note above. Patient seen and examined. In summary 76- year-old the male with past history as described above who underwent the right knee replacement on February 07 who currently has orthostatic lightheadedness with a drop in blood pressure to 90 systolic. Patient noted to be currently on Norvasc and Dilaudid by oral route. I suspect the most likely reason for his Ultracet drop is antihypertensive medication narcotics and possible underlying dehydration. Patient also could have deconditioning from being in bed for last 3-4 days. Patient also noted to have fever day before which has subsided now. He UA seemed unremarkable and cultures negative. Chest x-ray is clear. Patient is noted to have slightly elevated white cell count. Today patient feels well and denies any further lightheadedness. He was able to ambulate. He remains afebrile with stable vital signs. Note that his BP sitting was 144/78 and standing is 146/80. Therefore patient is no longer orthostatic Vital Signs Date Time Temp Pulse Resp B/P B/P Pulse O2 O2 Flow FiO2 Mean Ox Delivery Rate 02/11 0635 98.8 88 16 152/80 95 Room Air 02/10 2219 99.1 83 19 142/70 93 Room Air 02/10 1400 98.5 94 18 148/68 95 Room Air Intake & Output 02/11 1600 02/11 0800 02/11 0000 Intake Total 250 490 Output Total 500 140 Balance -250 350 Intake, IV 10 10 Intake, Oral 240 480 Output, Urine 500 140 Exam: General: Patient awake alert oriented without any distress CVS: S1 plus S2 without any murmur or gallops Chest: Few scattered crepitation without any wheeze. There is no respiratory distress. Abdomen: Soft nontender, bowel sound present, no guarding or rebound FORMULATOR COMPOUNDER: Awake alert oriented without any focal neuro deficit and follows command appropriately Extremities: No edema; no clubbing or cyanosis noted; right knee dressing is noted Laboratory Tests 02/11 0659 Chemistry Sodium (137 - 145 mmol/L) 137 Potassium (3.5 - 5.1 mmol/L) 3.7 Chloride (98 - 107 mmol/L) 101 Carbon Dioxide (22 - 30 mmol/L) 26 Anion Gap (5 - 16) 9 BUN (9 - 20 mg/dL) 13 Creatinine (0.7 - 1.2 mg/dL) 0.6 L Estimated GFR (>60 ml/min) > 60 BUN/Creatinine Ratio (7 - 25 %) 21.7 Hematology CBC w Diff NO MAN DIFF REQ WBC (4.8 - 10.8 /CUMM) 8.8 RBC (4.70 - 6.10 /CUMM) 3.52 L Hgb (14.0 - 18.0 G/DL) 11.1 L Hct (42 - 52 %) 31.9 L MCV (80.0 - 94.0 FL) 90.7 MCH (27.0 - 31.0 PG) 31.5 H RDW (11.5 - 14.5 %) 13.3 Plt Count (130 - 400 /CUMM) 235 MPV (7.4 - 10.4 FL) 7.5 Gran % (42.2 - 75.2 %) 69.1 Lymphocytes % (20.5 - 51.1 %) 12.8 L Monocytes % (1.7 - 9.3 %) 15.6 H Eosinophils % (0 - 5 %) 2.1 Basophils % (0.0 - 2.0 %) 0.4 Absolute Granulocytes (1.4 - 6.5 /CUMM) 6.1 Absolute Lymphocytes (1.2 - 3.4 /CUMM) 1.1 L Absolute Monocytes (0.10 - 0.60 /CUMM) 1.4 H Absolute Eosinophils (0.0 - 0.7 /CUMM) 0.2 Absolute Basophils (0.0 - 0.2 /CUMM) 0 PUBS MCHC (33.0 - 37.0 G/DL) 34.8 Suggestions * Patient can be discharged home * consider alternative medication such as Tylenol or Ultram for pain upon discharge * Orthostats were rechecked and he is currently stable * I will suggest starting 2.5 mg amlodipine daily; I did inform the patient about dose reduction * Care plan was discussed with the surgical PA
== END 2017-02-11 12:25 | disposition home health service (06) | DRG 470 ==
LOC: SDA 02:01 → ENRESERV 16:11 → ENTRNSPT 17:35 → 2NA 18:00 → CMPTRNSPT 18:06 → ENPENDDIS 02-11 10:17 → 2NA 02-11 12:25
PROVIDERS: Physician Assistant Surgical; ADMIT Orthopaedic Surgery
PROC: 0SRC0J9 Replacement of Right Knee Joint with Synthetic Substitute, Cemented, Open Approach (ICD-10-PCS; principal; 2017-02-07)
DX: M17.11 Unilateral primary osteoarthritis, right knee (principal); R50.82 Postprocedural fever; M06.9 Rheumatoid arthritis, unspecified; E86.0 Dehydration; I95.1 Orthostatic hypotension; Z86.73 Personal history of transient ischemic attack (TIA), and cerebral infarction without residual deficits; I10 Essential (primary) hypertension; E03.9 Hypothyroidism, unspecified; Z87.891 Personal history of nicotine dependence; Z79.52 Long term (current) use of systemic steroids; M25.761 Osteophyte, right knee
CPT/HCPCS: 2NAP; 36415; 81001; 81003; 82436; 87040; 87086; 93005; 93010; 97110-GO; 97116-GO; 97161-GP; 97530-GO; C1713; J0690; J1720; J2405; J2550; J2795; J7040; J7042; J7512

== ENCOUNTER 2017-10-08 00:42 | Inpatient (IN) | payer OTHER, MEDICARE ==
[~2017-10-08] VITALS: Ht 172.7 cm; Wt 103.9 kg
[~2017-10-08 00:42] MED LIST changes: +ACETAMINOPHEN500 M4 PO; +ASPIRIN EC325 M2 PO; +COLACE100 M1 PO; +DILAUDID2 M1 PO; +MIRALAX17 G1 PO; +MS CONTIN15 M2 PO; +NORVASC2.5 M1 PO; +PROTONIX20 M1 PO
--- NOTE | 2017-10-08 11:29 | Admission Core Measures ---
Acute Coronary Syndrome (CM) ACS Core Measures Acute Coronary Syndrome Diagnosis No Congestive Heart Failure (NEW) CHF Core Measures Congestive Heart Failure Diagnosis No Cerebrovascular Accident (NEW) CVA Core Measures CVA/TIA Diagnosis No Venous Thromboembolism VTE Core Teodoro (View Protocol) VTE Risk Factors Surgery No Mechanical VTE Prophylaxis d/t N/A MechProphylax Ordered No VTE Pharm Prophylaxis d/t NA PharmProphylax ordered Problem List As ranked by this Provider includes Assessment & Plan 1. Primary osteoarthritis of left hip HOME MEDS Home Med List Acetaminophen 500 MG TABLET 2 TAB PO BID PRN PAIN (Reported) Amlodipine Besylate 5 MG TABLET 1 TAB PO DAILY BP (Reported) Levothyroxine Sodium (Synthroid) 50 MCG TABLET 1 TAB PO NIGHTLY HYPOTHYROID ( Reported) Prednisone 5 MG TABLET 1 TAB PO DAILY ARTHRITIS (Reported)
--- NOTE | 2017-10-08 11:43 | Surg Short-stay <48hrs Dis Sum ---
Visit Information Visit Dates Admission Date: 10/08/17 Surgical Short Stay DC Summary Admission Diagnosis: Primary osteoarthritis right hip Final Diagnosis: Same, status post right total hip arthroplasty Procedure(s): Right total hip arthroplasty Summary/Significant Findings: Patient was admitted to the hospital for an elective total joint replacement. Procedure was tolerated well and patient was transferred to a general surgical floor. Diet was advanced and tolerated. Physical therapy performed evaluation and treatment. At time of hospital discharge, vital signs were stable, neurovascular status was intact, and pain was controlled with the use of oral pain medications. Patient does have a history of pituitary surgery, and is followed closely by endocrinology. Per Dr. Aguirre, patient should resume normal home dose of prednisone (5mg daily). No prednisone taper will be necessary. Condition at Discharge: Stable Discharge Disposition: home health services Discharge instructions provided to patient/family: Yes Post discharge follow-up plan: Follow up with Dr. Aguirre in 6 weeks from date of surgery. Please call his office to schedule/confirm this appointment.
--- NOTE | 2017-10-08 11:45 | Patient Discharge Instructions ---
Discharge Instructions General Discharge Information You were seen/treated for: Right hip pain due to osteoarthritis You had these procedures: Right total hip arthroplasty Watch for these problems: Increasing pain despite the use of pain medication Increasing redness, warmth or swelling Drainage of any type from incision Inability to bear weight on operative leg Persistent nausea and vomiting Fever greater than 101.5 degrees Other wound care: Please keep wound clean and dry. No ointments or lotions of any type on or near incision. Your dressing will be changed by your nurse on the second day after your surgery. Daily dry dressing changes are recommended each day thereafter. You may shower 48hr after surgery. Do not soak your wound- no tub baths or swimming. Special Instructions: Aspirin: You are taking this medication to help prevent blood clot formation. Please take with food to protect your stomach lining. Take as directed. Protonix (pantoprazole): Take this medication to protect your stomach lining while taking high dose aspirin. Constipation: Pain medication can cause constipation. It is recommended that you take Colace and miralax daily. You may discontinue this medication if you develop loose stool or diarrhea. If you wish to continue this medication, it is available over the counter. If you are unable to move your bowels or pass gas after several days, please contact your doctor. Per Dr. Aguirre, resume regular prednisone dose (5mg daily). Do not follow taper from stencil inspector. Diet Recommended Diet: Regular Activity Activity Limited to: Weight bear as tolerated Additional ACTIVITY Info: Use assistive devices as needed Acute Coronary Syndrome Inclusion Criteria At DC or during hospital stay patient has or had the following: ACS DIAGNOSIS No Discharge Core Measures Meds if any: Prescribed or Continued at Discharge Meds if any: NOT Prescribed or Continued at Discharge Congestive Heart Failure Inclusion Criteria At DC or during hospital stay patient has or had the following: CHF DIAGNOSIS No Discharge Core Measures Meds if any: Prescribed or Continued at Discharge Meds if any: NOT Prescribed or Continued at Discharge Cerebrovascular accident Inclusion Criteria At DC or during hospital stay patient has or had the following: CVA/TIA Diagnosis No Discharge Core Measures Meds if any: Prescribed or Continued at Discharge Meds if any: NOT Prescribed or Continued at Discharge Venous thromboembolism Inclusion Criteria VTE Diagnosis No VTE Type NONE VTE Confirmed by (Test) NONE Discharge Core Measures - Per Current guidelines, there needs to be overlap - treatment for the first 5 days of Warfarin therapy. - If discharged on Warfarin prior to 5 days of - overlap therapy, the patient will need to be - assessed for post discharge needs including - *Post discharge parental anticoagulation - *Warfarin and/or parental anticoagulation education - *Follow up date to check INR post discharge At least 5 days overlap therapy as Inpatient No Meds if any: Prescribed or Continued at Discharge Note: Overlap Therapy is Warfarin and Anticoagulant Meds if any: NOT Prescribed or Continued at Discharge
[2017-10-08] MEDS ORDERED: ASPIRIN EC325 M2 PO (11:49)
[2017-10-08] MEDS ORDERED: DILAUDID2 M1 PO (11:49)
[2017-10-08] MEDS ORDERED: COLACE100 M1 PO (11:49)
[2017-10-08] MEDS ORDERED: PROTONIX20 M1 PO (11:49)
[2017-10-08] MEDS ORDERED: MIRALAX17 G1 PO (11:49)
[2017-10-08] MEDS ORDERED: INDOMETHACIN25 M1 PO (14:19)
[2017-10-08] MEDS ORDERED: ADULT LOW DOSE81 MG PO (14:19)
--- NOTE | 2017-10-08 14:24 | Operative Report ---
Operative/Inv Procedure Report Surgery Date: 10/08/17 Name of Procedure: Right total hip replacement Pre-Operative Diagnosis: Primary right hip DJD Post-Operative Diagnosis: Same Estimated Blood Loss: 300 Surgeon/Edge Trimmer Mechanic: Timothy JUNG,Phillip Watts Anesthesia: general endotracheal tube Operative/Procedure Note Note: Description of Procedure: The patient was taken to the operating room and positively identified. After induction of general anesthesia and administration of appropriate pre-operative antibiotics, the patient was positioned supine on the operating room table and all bony prominences were well padded. After performing a surgical timeout, the right lower extremity was prepped and draped in the usual sterile fashion. A direct anterior approach was made to the right hip. The incision was carried sharply through superficial soft tissues to the level of the fascia. Meticulous hemostasis was maintained with Bovie electocautery. The fascia over the tensor fascia deshawn muscle was opened sharply and the interval between the TFL and the sartorius was entered bluntly taking care to stay lateral to the lateral femoral cutaneous nerve. Retractors were placed around the femoral neck and the pericapsular fat was identified. The ascending branches of the lateral femoral circumflex vessels were identified and carefully coagulated. The pericapsular fat and anterior capsule were then resected. A napkin ring osteotomy was performed and the femoral head was removed without difficulty. Attention was then turned to the acetabulum. After appropriate placement of retractors, the acetabulum was exposed. Soft tissue was cleaned from the acetabular margin and notch. Overhanging osteophytes were removed and the teardrop was exposed. The acetabulum was then sequentially reamed to accept a 60 mm Saturnino Tritanium hemispherical solid shell. This was impacted into place in the appropriate position and fitted with a 36 mm Trident X3 zero degree polyethylene insert. Attention was then turned to the femur. After performing the appropriate ligament releases, the proximal femur was exposed. It was then sequentially broached to accept a size 5 [place] Accolade II 127 neck angle stem. This was trialed for leg length and stability. The trial component was removed and the final component was impacted into place. The trunnion was carefully cleaned and fit with a 36 mm, +0 Biolox delta ceramic femoral head. The hip was reduced and put through a full range of motion and found to be stable. The articular space was then irrigated with sterile saline. The periarticular soft tissues were infilitrated with Marcaine. The fascial layer was closed with interrupted #1 vicryl suture and the skin was re-approximated with interrupted 2 -0 vicryl. The skin was closed with a running 3-0 V-Lock suture. Steri-strips and a sterile dressing were applied. The patient was awakened and taken to the recovery room in satisfactory condition.
--- NOTE | 2017-10-08 15:53 | RADIOLOGY REPORT ---
EXAMINATION: XR HIP, RIGHT CLINICAL INFORMATION: Postop right hip. COMPARISON: None TECHNIQUE: Two views of the right hip. FINDINGS: Status post right hip replacement. Orthopedic components in position. No fracture. No dislocation. IMPRESSION: Status post right hip replacement. No acute abnormality.
--- NOTE | 2017-10-08 16:44 | PN- Orthopedic ---
Subjective Subjective: Post op check Awake, sleepy but awakens and responds appropriately Denies any pain or nausea Has not ambulated yet post op Objective Vital Signs and I&Os Intake & Output 10/08 1600 10/08 0800 10/08 0000 10/07 1600 10/07 0810/07 0000 Intake Total Output Total Balance Patient 226 lb Weight Physical Exam: VSS, afebrile General: alert and oriented times three Chest: clear anteriorly bilaterally, RRR Abd: soft, good bs Ext: warm, no edema, normosensate BLE, good 5/5 MARTA BLE, 2+ DP bilaterally Wd: dressed, slight staining to dressing - not saturated, ice pack in place, ALPS in place Assessment/Plan Assessment/Plan 77yo male s/p R THR wbat asa 81mg po bid for dvt ppx indocin 25mg po tid for 10 days home dose prednisone 5 mg daily ordered protonix pain management follow up voiding post op Core Measures Venous Thromboembolism VTE Risk Factors Surgery No Mechanical VTE Prophylaxis d/t N/A MechProphylax Ordered No VTE Pharm Prophylaxis d/t NA PharmProphylax ordered
[2017-10-08 17:51] VITALS: BP 145/78
[2017-10-08 21:31] VITALS: BP 124/67
[2017-10-09 01:22] VITALS: BP 146/80
[2017-10-09 05:00] VITALS: BP 142/78
--- NOTE | 2017-10-09 08:46 | PN- Orthopedic ---
Subjective Subjective: POD#1 S/P RIGHT [place] NO MAJOR ISSUES OVERNIGHT DENEIS CP, SOB,NO N+V WITH DIET Objective Vital Signs and I&Os Vital Signs Date Time Temp Pulse Resp B/P B/P Pulse O2 O2 Flow FiO2 Mean Ox Delivery Rate / 0817 79 142/78 / 0500 98.0 79 16 142/78 99 Room Air 10/09 0122 99.1 72 18 146/80 95 Room Air 10/08 2131 97.9 78 18 124/67 96 10/08 1751 97.4 69 18 145/78 95 Room Air Intake & Output / 1600 10/09 0800 10/09 0000 10/08 1600 10/08 0800 10/08 0000 Intake Total 540 315 Output Total 100 Balance 540 215 Intake, IV 300 75 Intake, Oral 240 240 Output, Urine 100 Patient 229 lb 226 lb 226 lb Weight Weight Bed scale Measurement Method Physical Exam: CV: RRR LUNGS: CLEAR ABD: SOFT, +BS EXT: DISTAL CMS THIGH SOFT DRSG DRY Assessment/Plan Assessment/Plan ORTHO STABLE PLAN OOB FWITH PT TODAY ASA FOR DVT PROPHYLAXIS INDOCIN FOR HO HOME D/C PLANNING Core Measures Venous Thromboembolism VTE Risk Factors Surgery No Mechanical VTE Prophylaxis d/t N/A MechProphylax Ordered No VTE Pharm Prophylaxis d/t NA PharmProphylax ordered
[2017-10-09 09:04] LABS: ABSOLUTE BASOPHIL COUNT 0 /CUMM (0.0-0.2); ABSOLUTE EOSINOPHIL COUNT 0.1 /CUMM (0.0-0.7); ABSOLUTE GRANULOCYTE CT 5.5 /CUMM (1.4-6.5); ABSOLUTE LYMPH COUNT 0.9 /CUMM (1.2-3.4); ABSOLUTE MONOCYTE COUNT 1.5 /CUMM (0.10-0.60); BASOPHIL % 0.4 % (0.0-2.0); EOSINOPHIL % 1.1 % (0-5); GRANULOCYTE % 68.3 % (42.2-75.2); HEMATOCRIT 36.2 % (42-52); MEAN CORPUSCULAR HGB 31.3 PG (27.0-31.0); MEAN CORPUSCULAR HGB CONC 34.3 G/DL (33.0-37.0); MEAN CORPUSCULAR VOLUME 91.4 FL (80.0-94.0); MEAN PLATELET VOLUME 7.5 FL (7.4-10.4); PLATELET COUNT 209 /CUMM (130-400); RBC DISTRIBUTION WIDTH 13.9 % (11.5-14.5); RED BLOOD CELL CT 3.96 /CUMM (4.70-6.10)
[2017-10-09 09:22] VITALS: BP 127/70
[2017-10-09] MEDS ORDERED: INDOMETHACIN25 M1 PO (10:30)
[2017-10-09] MEDS ORDERED: MIRALAX17 G1 PO (10:30)
[2017-10-09] MEDS ORDERED: DILAUDID2 M1 PO ×2 (10:30→11:51)
[2017-10-09] MEDS ORDERED: ADULT LOW DOSE81 MG PO (10:30)
[2017-10-09] MEDS ORDERED: PROTONIX20 M1 PO (10:30)
[2017-10-09] MEDS ORDERED: COLACE100 M1 PO (10:30)
== END 2017-10-09 12:27 | disposition home health service (06) | DRG 470 ==
LOC: 2NB 00:42 → SDA 00:42 → CANRESERV 15:05 → ENRESERV 15:05 → ENTRNSPT 16:31 → 2NB 16:48 → CMPTRNSPT 16:59 → ENPENDDIS 10-09 10:23 → ENTRNSPT 10-09 12:16 → EDTRNSPT 10-09 12:21 → EDTRNSPTSTS 10-09 12:21 → 2NB 10-09 12:27 → CMPTRNSPT 10-09 12:43
PROVIDERS: Physician Assistant Surgical
PROC: 0SR904Z Replacement of Right Hip Joint with Ceramic on Polyethylene Synthetic Substitute, Open Approach (ICD-10-PCS; principal; 2017-10-08)
DX: M16.11 Unilateral primary osteoarthritis, right hip (principal); E23.0 Hypopituitarism; M06.9 Rheumatoid arthritis, unspecified; E03.9 Hypothyroidism, unspecified; I10 Essential (primary) hypertension; Z86.73 Personal history of transient ischemic attack (TIA), and cerebral infarction without residual deficits; Z79.51 Long term (current) use of inhaled steroids; Z88.8 Allergy status to other drugs, medicaments and biological substances; Z96.651 Presence of right artificial knee joint; G43.909 Migraine, unspecified, not intractable, without status migrainosus
CPT/HCPCS: 2NBSP; 36592; 73502-RT; 82436; C9399; J0690; J0735; J1720; J3490; J7512